=== PATIENT | female | born 1990 | race Caucasian/White ===

== ENCOUNTER 2023-06-26 08:46 | Emergency (ER) | payer OTHER ==
[~2023-06-26] VITALS: Ht 162 cm; Wt 66.0 kg
[2023-06-26] MEDS ORDERED: IBUPROFEN 800 MG TABLET PO STA (09:00)
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
[2023-06-26 09:09] VITALS: BP 120/75
[2023-06-26] MEDS ORDERED: Tetanus/Diphtheria/Pertussis (Acell) ADULT Vaccine 0.5 ML IM ONE (09:15)
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
[2023-06-26] MEDS ORDERED: ACHD5005 PO (09:55)
== END 2023-06-26 10:15 | disposition home or self-care (01) ==
LOC: ER FS 08:48
DX: S82.832A Other fracture of upper and lower end of left fibula, initial encounter for closed fracture (principal); S92.152A Displaced avulsion fracture (chip fracture) of left talus, initial encounter for closed fracture; Z23 Encounter for immunization; V27.09XA Other motorcycle driver injured in collision with fixed or stationary object in nontraffic accident, initial encounter; Y92.410 Unspecified street and highway as the place of occurrence of the external cause
CPT/HCPCS: 73610; 90471; 90715

== ENCOUNTER → 2023-07-04 | Outpatient (CLI) | payer OTHER ==
[~2023-07-04] MED LIST: ACHD5005 PO
== END ==
LOC: ORTHO 10:59
PROVIDERS: ATTEND Orthopaedic Surgery
DX: S82.62XA Displaced fracture of lateral malleolus of left fibula, initial encounter for closed fracture (principal); X58.XXXA Exposure to other specified factors, initial encounter
CPT/HCPCS: 99203

== ENCOUNTER → 2023-07-25 | Outpatient (CLI) | payer OTHER ==
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
== END ==
LOC: ORTHO 10:37
PROVIDERS: ATTEND Orthopaedic Surgery
DX: S82.65XD Nondisplaced fracture of lateral malleolus of left fibula, subsequent encounter for closed fracture with routine healing (principal); X58.XXXD Exposure to other specified factors, subsequent encounter
CPT/HCPCS: 73610; 99213